=== PATIENT | female | born 1945 | race Caucasian/White ===

== ENCOUNTER → 2017-06-24 | Outpatient (CLI) | payer OTHER | END | disposition home or self-care (01) | LOC: ECHO 13:38 | DX: I08.2 Rheumatic disorders of both aortic and tricuspid valves (principal) | CPT/HCPCS: 93306 ==

== ENCOUNTER → 2017-12-26 | Outpatient (CLI) | payer OTHER ==
--- NOTE | 2017-12-26 13:13 | KCIC ---
History: Postmenopausal, loss of height, white female. Comparison: None. Findings: Bone Densitometry was performed with dual photon absorption of the lumbar spine and left hip. Lumbar Spine: Bone density is 0.704 g/cm2 for L1-L4. T-Score is -3.1. Z-score is 1.0. Mild levoconvex curvature of lumbar spine is seen. Left hip: Bone density is 0.735 g/cm2. T-Score is -1.7. Z-score is -0.2. IMPRESSION: 1. Osteoporosis of the lumbar spine. 2. Osteopenia of the left hip. World Health definition of osteoporosis and osteopenia: Normal = T-Score at or above -1.0; osteopenia = T-score between -1.0 and -2.5; osteoporosis = T-score at or below -2.5 Electronically signed by: Oh Hughes MD (12/26/2017 1:10 PM) [id number]
--- NOTE | 2017-12-26 13:47 | KCIC ---
EXAM: Bilateral screening mammogram. HISTORY: 72-year-old female presents for screening mammography. TECHNIQUE: Full-field digital craniocaudal and mediolateral oblique views of both breasts are obtained for evaluation. Computer aided detection with [employer] software version 9.3 was applied. COMPARISON: There is no prior study within 10 years for comparison. This exam serves as a new baseline mammogram. BREAST PARENCHYMAL DENSITY: Level D - Extremely dense. FINDINGS: There is no suspicious mass, microcalcification or region of architectural distortion. IMPRESSION: BI-RADS Category 2: Benign finding(s). RECOMMENDATION: Annual mammography is recommended. If your mammogram demonstrates that you have dense breast tissue, which could hide abnormalities, and if you have other risk factors for breast cancer that have been identified, you might benefit from supplemental screening tests that may be suggested by your ordering physician. Dense breast tissue, in and of itself, is a relatively common condition. This information is not provided to cause undue concern, but rather to raise your awareness and to promote discussion with your physician regarding the presence of other risk factors, in addition to dense breast tissue. A report of your mammography results will be sent to you and your physician. You should contact your physician if you have any questions or concerns regarding this report. Mammography is a sensitive method for finding small breast cancers, but it does not detect them all and is not a substitute for careful clinical examination. A negative mammogram does not negate a clinically suspicious finding and should not result in delay in biopsying a clinically suspicious abnormality. PQRS compliance statement - Patient information was entered into a reminder system with a target due date for the next mammogram. "Our facility is accredited by the [employer] Mammography Program." Electronically signed by: Darcie Sanchez MD (12/26/2017 1:44 PM) [id number]
--- NOTE | 2017-12-26 15:49 | KCIC ---
PA and lateral chest radiograph. History: Cough for one year. Current smoker. Comparison: None. Findings: Cardiomediastinal silhouette is within normal limits for size. Bilateral lung [place] appear clear without evidence of infiltrate, effusion, or pneumothorax. Impression: 1. No acute cardiopulmonary process. Electronically signed by: Oh Hughes MD (12/26/2017 3:45 PM) [facility]
--- NOTE | 2017-12-26 16:12 | KCIC ---
Carotid Doppler ultrasound INDICATION: Left carotid bruit. COMPARISON: None are available TECHNIQUE: Color, grayscale and doppler ultrasound images obtained of the carotid system bilaterally. Percent stenosis is estimated using criteria that correlates with NASCET methodology. FINDINGS: Peak systolic velocities are as follows in cm/s: Right Carotid System: CCA PSV: 51 ICA PSV: 74 ICA EDV: 35 ECA PSV: 33 ICA/CCA Ratio 1.43 Right vertebral artery is patent with normal direction of flow. Mild to moderate plaque. Left Carotid System: CCA PSV: 69 ICA PSV: 98 ICA EDV: 40 ECA PSV: 121 ICA/CCA Ratio 1.7 Left vertebral artery is patent with normal direction of flow. Rffe-vc-[id number] plaque. IMPRESSION: 1. Left internal carotid artery end-diastolic velocity is at the upper limits of normal, as could be seen with approximately 50% stenosis. However, no significant associated peak systolic velocity elevation or ICA/CCA ratio elevation. 2. No evidence of right carotid hemodynamically significant stenosis. Electronically signed by: Oh Jackson MD (12/26/2017 4:09 PM) [id number]
== END | disposition home or self-care (01) ==
LOC: KCIC US 09:13
PROVIDERS: ATTEND Family Medicine
DX: Z12.31 Encounter for screening mammogram for malignant neoplasm of breast (principal); Z13.820 Encounter for screening for osteoporosis; M81.8 Other osteoporosis without current pathological fracture; M85.88 Other specified disorders of bone density and structure, other site; F17.200 Nicotine dependence, unspecified, uncomplicated; R05 Cough; R09.89 Other specified symptoms and signs involving the circulatory and respiratory systems
CPT/HCPCS: 71046; 77067; 77080; 93880